=== PATIENT | female | born 1980 | race Caucasian/White ===

== ENCOUNTER 2019-03-11 14:37 | Inpatient (IN) ==
[2019-03-11 17:01] LABS: Apearance,Urine CLOUDY (Clear); Bacteria,Urine Occasional /HPF (Few); Blood, Urine Moderate mg/dL (Negative); Glucose,Urine (UA) Negative (Negative); Ketones,Urine 80 mg/dL (Negative); Mucus,Urine Many /LPF (Occasional); Nitrite,Urine Negative (Negative); Protein,Urine 100 MG/DL; RBC,Urine 78 /HPF (0-4); Squamous Epithelial Cell,Urine Moderate /HPF (0-10); Urine Color Amber (Yellow); Urine Specific Gravity 1.027 (1.001-1.035); WBC,Urine 12 /HPF (0-6)
[2019-03-11 17:02] LABS: Bilirubin,Urine Small mg/dL (Negative)
[2019-03-11] MEDS ORDERED: MORPHINE 4 MG/1 ML VIAL IV STA (17:13)
[2019-03-11] MEDS ORDERED: ONDANSETRON 4 MG/2 ML VIAL IV STA (17:13)
[2019-03-11] MEDS ORDERED: SODIUM CHLORIDE 0.9% 1,000 ML IV STA (17:13)
[2019-03-11 17:38] LABS: Basophils % 0.2 % (0.0-0.8); Eosinophils % 0.2 % (0.00-10.9); Hematocrit 37.4 VOL% (35.7-47.0); Hemoglobin 12.3 GM/DL (12.0-16.0); Immature Granulocytes % 0.4 %; Immature Granulocytes Absolute 0.05 #; Lymphocytes # 1.3 10*3/uL (1.4-4.0); Lymphocytes % 10.7 % (21.3-54.2); Mean Corpuscular HGB Conc 32.9 GM/DL (32-36); Mean Corpuscular Volume 87.2 FL (87-102); Mean Platelet Volume 10.2 FL (9.6-12.0); Monocytes % 9.1 % (1.7-12.7); Neutrophils % 79.4 % (38.7-73.9); Platelet Count 306 T/CUMM (130-400); Red Blood Count 4.29 MC/CUMM (3.8-5.5); Red Cell Distribution Width 12.8 % (9.3-17.3); White Blood Count 11.7 T/CUMM (4-12)
[2019-03-11 18:15] LABS: Albumin 3.1 G/DL (3.4-5.0); Bilirubin,Total 0.9 MG/DL (0.2-1.0); Total Protein 8.3 G/DL (6.4-8.3)
[2019-03-11] MEDS ORDERED: ACETAMINOPHEN 325 MG TABLET PO PRN (20:36)
[2019-03-11] MEDS ORDERED: ONDANSETRON 4 MG/2 ML VIAL IV PRN (20:36)
[2019-03-11] MEDS: SODIUM CHLORIDE 0.45% 1,000 ML IV SCH (21:00)
[2019-03-11] MEDS ORDERED: LACTULOSE 20 GM/30 ML UDCUP PO PRN (23:06)
[2019-03-11] MEDS: ENOXAPARIN 40 MG/0.4 ML SYRINGE SUBCUT SCH (23:11)
[2019-03-11] MEDS: cefTRIAXone 1,000 MG in SYRINGE 1 EACH IV SCH (23:23)
[2019-03-11] MEDS: POTASSIUM CHLORIDE RIDER 10 MEQ in PREMIX 1 EACH IV SCH (23:24)
[2019-03-11] MEDS: DOCUSATE SODIUM 100 MG CAPSULE PO SCH (23:24)
[2019-03-12 00:18] LABS: Carcinoembryonic Antigen 0.7 NG/ML (0.0-5.0); Hepatitis B Core IgM Quant 0.12 Index; Hepatitis B Surface Ag Quant < 0.10 Index; Hepatitis B Surface Ag Result Negative (Negative); Hepatitis C Virus Ab Quant 0.07 Index; Hepatitis C Virus Ab Result Negative (Negative)
[2019-03-12] MEDS: POTASSIUM CHLORIDE RIDER 10 MEQ in PREMIX 1 EACH IV SCH ×2 (01:00→02:06)
[2019-03-12 04:46] LABS: Basophils % 0.2 % (0.0-0.8); Eosinophils # 0.1 10*3/uL (0.0-0.87); Eosinophils % 0.5 % (0.00-10.9); Hematocrit 32.6 VOL% (35.7-47.0); Hemoglobin 10.6 GM/DL (12.0-16.0); Immature Granulocytes % 0.4 %; Immature Granulocytes Absolute 0.04 #; Lymphocytes # 1.4 10*3/uL (1.4-4.0); Lymphocytes % 14.6 % (21.3-54.2); Mean Corpuscular HGB Conc 32.5 GM/DL (32-36); Mean Corpuscular Volume 88.3 FL (87-102); Mean Platelet Volume 10.8 FL (9.6-12.0); Monocytes % 11.2 % (1.7-12.7); Neutrophils % 73.1 % (38.7-73.9); Platelet Count 286 T/CUMM (130-400); Red Blood Count 3.69 MC/CUMM (3.8-5.5); Red Cell Distribution Width 12.9 % (9.3-17.3); White Blood Count 9.3 T/CUMM (4-12)
[2019-03-12 05:20] LABS: Albumin 2.5 G/DL (3.4-5.0); Calcium 8.5 MG/DL (8.5-10.1); Osmolality,Calculated 272.7 MOS/KG (273-304); Total Protein 6.9 G/DL (6.4-8.3)
[2019-03-12] MEDS: SODIUM CHLORIDE 0.45% 1,000 ML IV SCH ×5 (08:23→23:12)
[2019-03-12] MEDS: MORPHINE 4 MG/1 ML VIAL IV PRN ×3 (08:30→17:35)
[2019-03-12 17:18] LABS: PT Patient Result 11.1 SECS
[2019-03-12] MEDS: PANTOPRAZOLE 40 MG TABLET PO SCH (17:35)
[2019-03-12] MEDS: DOCUSATE SODIUM 100 MG CAPSULE PO SCH ×2 (17:35→21:15)
[2019-03-12] MEDS: ENOXAPARIN 40 MG/0.4 ML SYRINGE SUBCUT SCH (21:15)
[2019-03-12] MEDS: cefTRIAXone 1,000 MG in SYRINGE 1 EACH IV SCH (23:15)
[2019-03-13] MEDS: MORPHINE 4 MG/1 ML VIAL IV PRN ×2 (07:56→12:10)
[2019-03-13 08:38] VITALS: BP 96/51
[2019-03-13] MEDS: DOCUSATE SODIUM 100 MG CAPSULE PO SCH (09:30)
[2019-03-13] MEDS: PANTOPRAZOLE 40 MG TABLET PO SCH (09:30)
[2019-03-13] MEDS: SODIUM CHLORIDE 0.45% 1,000 ML IV SCH (17:34)
== END 2019-03-13 18:32 | disposition home or self-care (01) | DRG 436 ==
LOC: N.ED 14:37 → N.EDINP 20:27 → N.5E 22:17
PROVIDERS: ADMIT Internal Medicine; ATTEND Internal Medicine

== ENCOUNTER 2019-07-10 10:41 | Inpatient (IN) ==
[2019-07-10] MEDS ORDERED: ACETAMINOPHEN 325 MG TABLET PO PRN (11:59)
[2019-07-10] MEDS ORDERED: PROMETHAZINE 25 MG/1 ML VIAL IM PRN (12:00)
[2019-07-10] MEDS: LACTATED RINGERS 1,000 ML IV SCH (12:10)
[2019-07-10 12:53] LABS: Basophils % 0.4 % (0.0-0.8); Eosinophils % 0.1 % (0.00-10.9); Hematocrit 37.5 VOL% (35.7-47.0); Hemoglobin 12.7 GM/DL (12.0-16.0); Immature Granulocytes % 0.4 %; Immature Granulocytes Absolute 0.03 #; Lymphocytes # 1.4 10*3/uL (1.4-4.0); Lymphocytes % 17.1 % (21.3-54.2); Mean Corpuscular HGB Conc 33.9 GM/DL (32-36); Mean Platelet Volume 11.1 FL (9.6-12.0); Monocytes % 9.3 % (1.7-12.7); Neutrophils % 72.7 % (38.7-73.9); Platelet Count 157 T/CUMM (130-400); Red Blood Count 4.36 MC/CUMM (3.8-5.5); Red Cell Distribution Width 13.9 % (9.3-17.3); White Blood Count 8.4 T/CUMM (4-12)
[2019-07-10 13:08] LABS: Calcium 8.7 MG/DL (8.5-10.1); Osmolality,Calculated 274.8 MOS/KG (273-304); PT Patient Result 10.8 SECS (9.6-12.2)
[2019-07-10] MEDS: ONDANSETRON 4 MG/2 ML VIAL IV PRN (13:16)
[2019-07-10] MEDS ORDERED: POTASSIUM CHLORIDE RIDER 10 MEQ in PREMIX 1 EACH IV PRN (13:20)
[2019-07-10 13:22] LABS: Albumin 3.7 G/DL (3.4-5.0); Bilirubin,Direct 0.23 MG/DL (0.0-0.20); Bilirubin,Indirect 0.6 MG/DL (0.0-1.0); Bilirubin,Total 0.8 MG/DL (0.2-1.0)
[2019-07-10] MEDS: PIPERACILLIN/TAZOBACTAM 3,375 MG in SODIUM CHLORIDE 0.9% 100 ML IV SCH ×2 (13:50→22:51)
[2019-07-10] MEDS: POTASSIUM CHLORIDE 20 MEQ TABLET PO PRN ×3 (13:51→20:39)
[2019-07-10] MEDS: MORPHINE 4 MG/1 ML VIAL IV PRN (15:29)
[2019-07-10] MEDS: DOCUSATE SODIUM 100 MG CAPSULE PO SCH (20:39)
[2019-07-10] MEDS: OSELTAMIVIR 75 MG CAPSULE PO SCH (20:39)
[2019-07-11] MEDS: LACTATED RINGERS 1,000 ML IV SCH ×4 (03:01→19:55)
[2019-07-11 04:55] LABS: Basophils # 0.1 10*3/uL (0.0-0.2); Basophils % 0.7 % (0.0-0.8); Eosinophils # 0.1 10*3/uL (0.0-0.87); Eosinophils % 1.1 % (0.00-10.9); Hematocrit 34.1 VOL% (35.7-47.0); Hemoglobin 11.4 GM/DL (12.0-16.0); Immature Granulocytes % 0.3 %; Immature Granulocytes Absolute 0.02 #; Lymphocytes # 1.5 10*3/uL (1.4-4.0); Lymphocytes % 20.8 % (21.3-54.2); Mean Corpuscular HGB Conc 33.4 GM/DL (32-36); Mean Platelet Volume 11.7 FL (9.6-12.0); Monocytes % 12.6 % (1.7-12.7); Neutrophils % 64.5 % (38.7-73.9); Platelet Count 146 T/CUMM (130-400); Red Blood Count 3.92 MC/CUMM (3.8-5.5); Red Cell Distribution Width 13.9 % (9.3-17.3); White Blood Count 7.2 T/CUMM (4-12)
[2019-07-11] MEDS: PIPERACILLIN/TAZOBACTAM 3,375 MG in SODIUM CHLORIDE 0.9% 100 ML IV SCH ×3 (06:11→21:46)
[2019-07-11] MEDS: POTASSIUM CHLORIDE 20 MEQ TABLET PO PRN ×2 (06:11→15:22)
[2019-07-11] MEDS: ONDANSETRON 4 MG/2 ML VIAL IV PRN (06:19)
[2019-07-11] MEDS: DOCUSATE SODIUM 100 MG CAPSULE PO SCH ×2 (08:22→21:52)
[2019-07-11] MEDS: OSELTAMIVIR 75 MG CAPSULE PO SCH ×2 (08:22→21:45)
[2019-07-11] MEDS: PANTOPRAZOLE 40 MG VIAL IV SCH (08:23)
[2019-07-12] MEDS: PIPERACILLIN/TAZOBACTAM 3,375 MG in SODIUM CHLORIDE 0.9% 100 ML IV SCH ×3 (06:10→21:21)
[2019-07-12] MEDS ORDERED: ceFAZolin 1,000 MG in SYRINGE 1 EACH IV ONE (07:18)
[2019-07-12] MEDS: DOCUSATE SODIUM 100 MG CAPSULE PO SCH ×3 (09:02→21:23)
[2019-07-12] MEDS: PANTOPRAZOLE 40 MG VIAL IV SCH (09:02)
[2019-07-12] MEDS: OSELTAMIVIR 75 MG CAPSULE PO SCH ×2 (09:02→21:21)
[2019-07-12] MEDS: LACTATED RINGERS 1,000 ML IV SCH ×2 (09:03→11:41)
[2019-07-12] MEDS: ONDANSETRON 4 MG/2 ML VIAL IV PRN (10:25)
[2019-07-13] MEDS: LACTATED RINGERS 1,000 ML IV SCH ×4 (03:44→19:35)
[2019-07-13 05:20] LABS: Basophils % 0.4 % (0.0-0.8); Eosinophils # 0.1 10*3/uL (0.0-0.87); Eosinophils % 1.3 % (0.00-10.9); Hematocrit 31.9 VOL% (35.7-47.0); Hemoglobin 10.5 GM/DL (12.0-16.0); Immature Granulocytes % 0.2 %; Immature Granulocytes Absolute 0.01 #; Lymphocytes # 1.1 10*3/uL (1.4-4.0); Lymphocytes % 23.5 % (21.3-54.2); Mean Corpuscular HGB Conc 32.9 GM/DL (32-36); Mean Corpuscular Volume 88.9 FL (87-102); Monocytes % 10.9 % (1.7-12.7); Neutrophils % 63.7 % (38.7-73.9); Platelet Count 141 T/CUMM (130-400); Red Blood Count 3.59 MC/CUMM (3.8-5.5); Red Cell Distribution Width 14.4 % (9.3-17.3); White Blood Count 4.7 T/CUMM (4-12)
[2019-07-13 05:39] LABS: Albumin 2.7 G/DL (3.4-5.0); Bilirubin,Total 0.8 MG/DL (0.2-1.0); Calcium 8.4 MG/DL (8.5-10.1); Total Protein 6.2 G/DL (6.4-8.3)
[2019-07-13] MEDS: PIPERACILLIN/TAZOBACTAM 3,375 MG in SODIUM CHLORIDE 0.9% 100 ML IV SCH ×3 (05:59→22:01)
[2019-07-13] MEDS ORDERED: SCOPOLAMINE 1.5 MG PATCH TRANSDERM ONE (06:30)
[2019-07-13] MEDS ORDERED: ACETAMINOPHEN 500 MG TABLET PO ONE (06:30)
[2019-07-13] MEDS ORDERED: FAMOTIDINE 20 MG TABLET PO ONE (06:30)
[2019-07-13] MEDS ORDERED: ceFAZolin 1,000 MG in SYRINGE 1 EACH IV ONE (06:30)
[2019-07-13] MEDS ORDERED: PROPOFOL 200 MG/20 ML VIAL IV ONE (10:19)
[2019-07-13] MEDS ORDERED: fentaNYL 100 MCG/2 ML VIAL ONE (10:20)
[2019-07-13] MEDS ORDERED: LIDOCAINE 2% 5 ML VIAL ONE (10:20)
[2019-07-13] MEDS ORDERED: KETOROLAC 30 MG/1 ML VIAL ONE (10:20)
[2019-07-13] MEDS ORDERED: MIDAZOLAM 2 MG/2 ML VIAL ONE (10:20)
[2019-07-13] MEDS ORDERED: GLYCOPYRROLATE 0.4 MG/2 ML VIAL ONE (10:20)
[2019-07-13] MEDS ORDERED: SEVOFLURANE 1 UNIT/15 MINUTE INH ONE (10:20)
[2019-07-13] MEDS ORDERED: ONDANSETRON 4 MG/2 ML VIAL ONE (10:20)
[2019-07-13] MEDS ORDERED: DEXAMETHASONE 4 MG/1 ML VIAL ONE (10:20)
[2019-07-13] MEDS ORDERED: LACTATED RINGERS 1,000 ML IV ONE (10:21)
[2019-07-13] MEDS ORDERED: ROCURONIUM 100 MG/10 ML VIAL IV ONE (10:21)
[2019-07-13] MEDS ORDERED: NEOSTIGMINE 10 MG/10 ML VIAL ONE (10:21)
[2019-07-13] MEDS: MORPHINE 4 MG/1 ML VIAL IV PRN (12:11)
[2019-07-13] MEDS: PANTOPRAZOLE 40 MG VIAL IV SCH (12:16)
[2019-07-13] MEDS: DOCUSATE SODIUM 100 MG CAPSULE PO SCH ×2 (12:16→22:00)
[2019-07-13] MEDS: OSELTAMIVIR 75 MG CAPSULE PO SCH ×2 (12:16→22:00)
[2019-07-13] MEDS: HYDROmorphone 2 MG/1 ML VIAL IV PRN ×2 (15:01→19:33)
[2019-07-14] MEDS: HYDROmorphone 2 MG/1 ML VIAL IV PRN (00:07)
[2019-07-14] MEDS: PIPERACILLIN/TAZOBACTAM 3,375 MG in SODIUM CHLORIDE 0.9% 100 ML IV SCH ×3 (06:48→22:07)
[2019-07-14 07:45] LABS: Basophils % 0.2 % (0.0-0.8); Eosinophils % 0.3 % (0.00-10.9); Hematocrit 32.2 VOL% (35.7-47.0); Hemoglobin 10.5 GM/DL (12.0-16.0); Immature Granulocytes % 0.4 %; Immature Granulocytes Absolute 0.04 #; Lymphocytes # 1.7 10*3/uL (1.4-4.0); Lymphocytes % 16.2 % (21.3-54.2); Mean Corpuscular HGB Conc 32.6 GM/DL (32-36); Mean Platelet Volume 11.7 FL (9.6-12.0); Monocytes % 8.9 % (1.7-12.7); Platelet Count 161 T/CUMM (130-400); Red Blood Count 3.62 MC/CUMM (3.8-5.5); Red Cell Distribution Width 14.6 % (9.3-17.3); White Blood Count 10.5 T/CUMM (4-12)
[2019-07-14 08:16] LABS: Albumin 2.7 G/DL (3.4-5.0); Calcium 8.5 MG/DL (8.5-10.1); Osmolality,Calculated 273.5 MOS/KG (273-304); Total Protein 6.3 G/DL (6.4-8.3)
[2019-07-14] MEDS: PANTOPRAZOLE 40 MG VIAL IV SCH (09:11)
[2019-07-14] MEDS: DOCUSATE SODIUM 100 MG CAPSULE PO SCH ×2 (09:11→20:14)
[2019-07-14] MEDS: OSELTAMIVIR 75 MG CAPSULE PO SCH ×2 (09:11→20:13)
[2019-07-14] MEDS: POTASSIUM CHLORIDE 20 MEQ TABLET PO PRN ×3 (09:44→13:59)
[2019-07-14] MEDS: LACTATED RINGERS 1,000 ML IV SCH ×3 (11:28→23:30)
[2019-07-15] MEDS: PIPERACILLIN/TAZOBACTAM 3,375 MG in SODIUM CHLORIDE 0.9% 100 ML IV SCH ×2 (06:21→14:13)
[2019-07-15] MEDS: OSELTAMIVIR 75 MG CAPSULE PO SCH (09:47)
[2019-07-15] MEDS: DOCUSATE SODIUM 100 MG CAPSULE PO SCH (09:47)
[2019-07-15] MEDS: PANTOPRAZOLE 40 MG VIAL IV SCH (09:47)
[2019-07-15] MEDS: LACTATED RINGERS 1,000 ML IV SCH ×2 (09:48→14:13)
[2019-07-15 12:04] VITALS: BP 109/65
== END 2019-07-15 14:54 | disposition home or self-care (01) | DRG 418 ==
LOC: N.3E 10:48
PROVIDERS: ADMIT Family Medicine; ATTEND Family Medicine
PROC: LAPCHOL (2019-07-13 07:13)

== ENCOUNTER 2019-07-15 23:06 | Inpatient (IN) ==
[2019-07-15] MEDS ORDERED: PANTOPRAZOLE 40 MG VIAL IV STA (23:27)
[2019-07-15] MEDS ORDERED: ONDANSETRON 4 MG/2 ML VIAL IV STA (23:27)
[2019-07-15] MEDS ORDERED: SODIUM CHLORIDE 0.9% 500 ML IV STA (23:27)
[2019-07-15] MEDS ORDERED: HYDROmorphone 2 MG/1 ML VIAL IV STA (23:27)
[2019-07-16 00:03] LABS: Basophils # 0.1 10*3/uL (0.0-0.2); Basophils % 0.2 % (0.0-0.8); Eosinophils # 0.1 10*3/uL (0.0-0.87); Eosinophils % 0.4 % (0.00-10.9); Hematocrit 37.8 VOL% (35.7-47.0); Hemoglobin 12.3 GM/DL (12.0-16.0); Immature Granulocytes % 0.8 %; Immature Granulocytes Absolute 0.17 #; Lymphocytes # 0.9 10*3/uL (1.4-4.0); Lymphocytes % 4.4 % (21.3-54.2); Mean Corpuscular HGB Conc 32.5 GM/DL (32-36); Mean Platelet Volume 11.7 FL (9.6-12.0); Monocytes % 7.8 % (1.7-12.7); Neutrophils % 86.4 % (38.7-73.9); Platelet Count 187 T/CUMM (130-400); Red Cell Distribution Width 14.6 % (9.3-17.3); White Blood Count 20.3 T/CUMM (4-12)
[2019-07-16 01:09] LABS: Anisocytosis 1+; Band Neutrophils 3 % (0-10); Lymphocytes 6 % (20-55); Platelet Estimate Normal; Segmented Neutrophils 85 % (50-85); Total Cells Counted 100
[2019-07-16 01:15] LABS: Apearance,Urine CLEAR (Clear); Bacteria,Urine Occasional /HPF (Few); Bilirubin,Urine Negative (Negative); Blood, Urine Moderate mg/dL (Negative); Glucose,Urine (UA) Negative (Negative); Ketones,Urine 80 mg/dL (Negative); Mucus,Urine Occasional /LPF (Occasional); Nitrite,Urine Negative (Negative); Protein,Urine Negative; RBC,Urine 6 /HPF (0-4); Squamous Epithelial Cell,Urine Few /HPF (0-10); Urine Color Yellow (Yellow); Urine Specific Gravity > 1.060 (1.001-1.035); WBC,Urine 2 /HPF (0-6)
[2019-07-16 01:19] LABS: Albumin 3.1 G/DL (3.4-5.0); Bilirubin,Total 1.3 MG/DL (0.2-1.0); Calcium 8.9 MG/DL (8.5-10.1); Osmolality,Calculated 272.7 MOS/KG (273-304); Total Protein 7.5 G/DL (6.4-8.3)
[2019-07-16] MEDS ORDERED: PIPERACILLIN/TAZOBACTAM 3,375 MG in SODIUM CHLORIDE 0.9% 100 ML IV STA (01:46)
[2019-07-16] MEDS ORDERED: ONDANSETRON 4 MG/2 ML VIAL IV PRN (03:21)
[2019-07-16] MEDS ORDERED: HYDROmorphone 2 MG/1 ML VIAL IV PRN (03:21)
[2019-07-16] MEDS ORDERED: ACETAMINOPHEN 325 MG TABLET PO PRN (03:21)
[2019-07-16] MEDS: SODIUM CHLORIDE 0.9% 1,000 ML IV SCH (03:57)
[2019-07-16 05:59] LABS: Basophils % 0.2 % (0.0-0.8); Eosinophils % 0.1 % (0.00-10.9); Hematocrit 31.3 VOL% (35.7-47.0); Hemoglobin 10.3 GM/DL (12.0-16.0); Immature Granulocytes % 0.5 %; Immature Granulocytes Absolute 0.06 #; Lymphocytes # 0.5 10*3/uL (1.4-4.0); Lymphocytes % 3.9 % (21.3-54.2); Mean Corpuscular HGB Conc 32.9 GM/DL (32-36); Mean Corpuscular Volume 87.9 FL (87-102); Mean Platelet Volume 12.1 FL (9.6-12.0); Monocytes % 10.2 % (1.7-12.7); Neutrophils % 85.1 % (38.7-73.9); Platelet Count 151 T/CUMM (130-400); Red Blood Count 3.56 MC/CUMM (3.8-5.5); Red Cell Distribution Width 14.4 % (9.3-17.3); White Blood Count 12.8 T/CUMM (4-12)
[2019-07-16 06:25] LABS: Albumin 2.7 G/DL (3.4-5.0); Bilirubin,Total 1.3 MG/DL (0.2-1.0); Calcium 8.1 MG/DL (8.5-10.1); Total Protein 6.1 G/DL (6.4-8.3)
[2019-07-16 06:40] LABS: Band Neutrophils 1 % (0-10); Lymphocytes 5 % (20-55); Platelet Estimate Adequate; Segmented Neutrophils 83 % (50-85); Total Cells Counted 100
[2019-07-16] MEDS: ALBUTEROL/IPRATROPIUM 3 ML NEB RESP TX SCH ×3 (07:13→18:57)
[2019-07-16] MEDS: PANTOPRAZOLE 40 MG VIAL IV SCH (09:33)
[2019-07-16] MEDS: PIPERACILLIN/TAZOBACTAM 3,375 MG in SODIUM CHLORIDE 0.9% 100 ML IV SCH ×2 (09:33→17:46)
[2019-07-16 16:02] LABS: Basophils % 0.2 % (0.0-0.8); Eosinophils % 0.4 % (0.00-10.9); Hematocrit 32.5 VOL% (35.7-47.0); Hemoglobin 10.5 GM/DL (12.0-16.0); Immature Granulocytes % 0.4 %; Immature Granulocytes Absolute 0.05 #; Lymphocytes # 0.8 10*3/uL (1.4-4.0); Lymphocytes % 7.1 % (21.3-54.2); Mean Corpuscular HGB Conc 32.3 GM/DL (32-36); Mean Corpuscular Volume 89.3 FL (87-102); Mean Platelet Volume 12.2 FL (9.6-12.0); Monocytes % 11.7 % (1.7-12.7); Neutrophils % 80.2 % (38.7-73.9); Platelet Count 170 T/CUMM (130-400); Red Blood Count 3.64 MC/CUMM (3.8-5.5); Red Cell Distribution Width 14.6 % (9.3-17.3); White Blood Count 11.2 T/CUMM (4-12)
[2019-07-16 16:21] LABS: Albumin 2.6 G/DL (3.4-5.0); Bilirubin,Total 1.3 MG/DL (0.2-1.0); Calcium 7.8 MG/DL (8.5-10.1); Osmolality,Calculated 271.7 MOS/KG (273-304); Total Protein 6.6 G/DL (6.4-8.3)
[2019-07-16] MEDS: ENOXAPARIN 40 MG/0.4 ML SYRINGE SUBCUT SCH (22:13)
[2019-07-17] MEDS: ALBUTEROL/IPRATROPIUM 3 ML NEB RESP TX SCH ×4 (00:22→19:54)
[2019-07-17] MEDS: PIPERACILLIN/TAZOBACTAM 3,375 MG in SODIUM CHLORIDE 0.9% 100 ML IV SCH ×3 (01:42→19:30)
[2019-07-17 07:01] LABS: Basophils % 0.2 % (0.0-0.8); Eosinophils % 0.5 % (0.00-10.9); Hematocrit 28.1 VOL% (35.7-47.0); Hemoglobin 9.2 GM/DL (12.0-16.0); Immature Granulocytes % 0.6 %; Immature Granulocytes Absolute 0.05 #; Lymphocytes # 0.8 10*3/uL (1.4-4.0); Lymphocytes % 9.6 % (21.3-54.2); Mean Corpuscular HGB Conc 32.7 GM/DL (32-36); Mean Corpuscular Volume 90.4 FL (87-102); Mean Platelet Volume 11.6 FL (9.6-12.0); Monocytes % 10.3 % (1.7-12.7); Neutrophils % 78.8 % (38.7-73.9); Platelet Count 138 T/CUMM (130-400); Red Blood Count 3.11 MC/CUMM (3.8-5.5); Red Cell Distribution Width 14.6 % (9.3-17.3); White Blood Count 8.7 T/CUMM (4-12)
[2019-07-17 07:21] LABS: Albumin 2.2 G/DL (3.4-5.0); Bilirubin,Total 1.1 MG/DL (0.2-1.0); Calcium 7.9 MG/DL (8.5-10.1); Osmolality,Calculated 273.5 MOS/KG (273-304); Total Protein 5.8 G/DL (6.4-8.3)
[2019-07-17] MEDS: SODIUM CHLORIDE 0.9% 1,000 ML IV SCH ×2 (08:59→09:01)
[2019-07-17] MEDS: PANTOPRAZOLE 40 MG VIAL IV SCH (09:53)
[2019-07-17] MEDS: ENOXAPARIN 40 MG/0.4 ML SYRINGE SUBCUT SCH (21:31)
[2019-07-18] MEDS: ALBUTEROL/IPRATROPIUM 3 ML NEB RESP TX SCH ×4 (01:35→19:28)
[2019-07-18] MEDS: SODIUM CHLORIDE 0.9% 1,000 ML IV SCH ×3 (02:14→03:39)
[2019-07-18] MEDS: PIPERACILLIN/TAZOBACTAM 3,375 MG in SODIUM CHLORIDE 0.9% 100 ML IV SCH ×2 (02:19→09:58)
[2019-07-18 04:44] LABS: Basophils % 0.4 % (0.0-0.8); Eosinophils # 0.2 10*3/uL (0.0-0.87); Eosinophils % 2.9 % (0.00-10.9); Hematocrit 26.3 VOL% (35.7-47.0); Hemoglobin 8.5 GM/DL (12.0-16.0); Immature Granulocytes % 0.6 %; Immature Granulocytes Absolute 0.03 #; Lymphocytes % 19.6 % (21.3-54.2); Mean Corpuscular HGB Conc 32.3 GM/DL (32-36); Mean Corpuscular Volume 89.5 FL (87-102); Monocytes % 10.2 % (1.7-12.7); Neutrophils % 66.3 % (38.7-73.9); Platelet Count 137 T/CUMM (130-400); Red Blood Count 2.94 MC/CUMM (3.8-5.5); Red Cell Distribution Width 14.5 % (9.3-17.3); White Blood Count 5.1 T/CUMM (4-12)
[2019-07-18 05:03] LABS: Osmolality,Calculated 283.7 MOS/KG (273-304)
[2019-07-18] MEDS: PANTOPRAZOLE 40 MG VIAL IV SCH (09:50)
[2019-07-18] MEDS: POTASSIUM CHLORIDE RIDER 10 MEQ in PREMIX 1 EACH IV SCH ×4 (11:09→14:12)
[2019-07-18] MEDS: AMOXICILLIN/CLAV 500 MG TABLET PO SCH ×2 (11:15→18:57)
[2019-07-18] MEDS: ENOXAPARIN 40 MG/0.4 ML SYRINGE SUBCUT SCH (19:57)
[2019-07-19] MEDS: ALBUTEROL/IPRATROPIUM 3 ML NEB RESP TX SCH ×2 (01:11→08:21)
[2019-07-19] MEDS: AMOXICILLIN/CLAV 500 MG TABLET PO SCH ×2 (02:26→11:14)
[2019-07-19 05:10] LABS: Basophils % 0.4 % (0.0-0.8); Eosinophils # 0.1 10*3/uL (0.0-0.87); Eosinophils % 2.7 % (0.00-10.9); Hematocrit 27.2 VOL% (35.7-47.0); Hemoglobin 8.8 GM/DL (12.0-16.0); Immature Granulocytes % 0.4 %; Immature Granulocytes Absolute 0.02 #; Lymphocytes # 0.9 10*3/uL (1.4-4.0); Lymphocytes % 19.4 % (21.3-54.2); Mean Corpuscular HGB Conc 32.4 GM/DL (32-36); Mean Corpuscular Volume 88.6 FL (87-102); Mean Platelet Volume 11.7 FL (9.6-12.0); Monocytes % 10.6 % (1.7-12.7); Neutrophils % 66.5 % (38.7-73.9); Platelet Count 162 T/CUMM (130-400); Red Blood Count 3.07 MC/CUMM (3.8-5.5); Red Cell Distribution Width 14.6 % (9.3-17.3); White Blood Count 4.8 T/CUMM (4-12)
[2019-07-19 05:58] LABS: Osmolality,Calculated 275.3 MOS/KG (273-304)
[2019-07-19 08:58] VITALS: BP 108/62
[2019-07-19] MEDS: PANTOPRAZOLE 40 MG VIAL IV SCH (09:12)
== END 2019-07-19 11:55 | disposition home or self-care (01) | DRG 392 ==
LOC: N.ED 23:06 → N.EDINP 07-16 02:02 → N.3E 07-16 02:55
PROVIDERS: ADMIT Student in an Organized Health Care Education/Training Program; ATTEND Student in an Organized Health Care Education/Training Program

== ENCOUNTER 2020-10-27 09:00 | Inpatient (IN) ==
[2020-10-27] MEDS ORDERED: ONDANSETRON 4 MG/2 ML VIAL IV STA (09:20)
[2020-10-27] MEDS ORDERED: ONDANSETRON 4 MG/2 ML VIAL ONE (09:30)
[2020-10-27] MEDS ORDERED: SODIUM CHLORIDE 0.9% 1,000 ML IV STA (09:49)
[2020-10-27] MEDS ORDERED: MORPHINE 4 MG/1 ML VIAL IV ONE (09:49)
[2020-10-27 10:00] LABS: Basophils % 0.3 % (0.0-0.8); Eosinophils # 0.1 10*3/uL (0.0-0.87); Eosinophils % 0.6 % (0.00-10.9); Hematocrit 41.5 VOL% (35.7-47.0); Hemoglobin 13.6 GM/DL (12.0-16.0); Immature Granulocytes % 0.4 %; Immature Granulocytes Absolute 0.05 #; Lymphocytes # 1.9 10*3/uL (1.4-4.0); Lymphocytes % 16.2 % (21.3-54.2); Mean Corpuscular HGB Conc 32.8 GM/DL (32-36); Mean Corpuscular Volume 85.4 FL (87-102); Mean Platelet Volume 12.1 FL (9.6-12.0); Monocytes % 8.1 % (1.7-12.7); Neutrophils % 74.4 % (38.7-73.9); Platelet Count 202 T/CUMM (130-400); Red Blood Count 4.86 MC/CUMM (3.8-5.5); Red Cell Distribution Width 14.6 % (9.3-17.3)
[2020-10-27 10:09] LABS: Albumin 3.8 G/DL (3.4-5.0); Bilirubin,Total 0.5 MG/DL (0.2-1.0); Calcium 9.2 MG/DL (8.5-10.1); Osmolality,Calculated 274.8 MOS/KG (273-304); Potassium 3.6 MMOL/L (3.5-5.1); Total Protein 8.6 G/DL (6.4-8.3)
[2020-10-27 11:18] LABS: Bacteria,Urine Occasional /HPF (Few); Bilirubin,Urine Negative (Negative); Blood, Urine Negative (Negative); Glucose,Urine (UA) Negative (Negative); Ketones,Urine 20 mg/dL (Negative); Mucus,Urine Occasional /LPF (Occasional); Nitrite,Urine Negative (Negative); Protein,Urine Negative; RBC,Urine 2 /HPF (0-4); Squamous Epithelial Cell,Urine Few /HPF (0-10); Urine Appearance CLEAR (Clear); Urine Color Yellow (Yellow); Urine Specific Gravity 1.054 (1.001-1.035); Urine Urobilinogen < 2.0 EU/DL (0.2-1.0); WBC,Urine 4 /HPF (0-6)
[2020-10-27] MEDS ORDERED: PIPERACILLIN/TAZOBACTAM 3,375 MG in SODIUM CHLORIDE 0.9% 100 ML IV STA (14:49)
[2020-10-27] MEDS ORDERED: PROMETHAZINE 25 MG/1 ML VIAL IM PRN (14:49)
[2020-10-27] MEDS: SODIUM CHLORIDE 0.9% 1,000 ML IV SCH (15:12)
[2020-10-27] MEDS: ONDANSETRON 4 MG/2 ML VIAL IV PRN ×2 (15:13→20:05)
[2020-10-27] MEDS: HYDROmorphone 2 MG/1 ML VIAL IV PRN ×2 (15:13→19:58)
[2020-10-27] MEDS ORDERED: hydrALAZINE 20 MG/1 ML VIAL IV PRN (18:17)
[2020-10-27] MEDS: PIPERACILLIN/TAZOBACTAM 3,375 MG in SODIUM CHLORIDE 0.9% 100 ML IV SCH (22:51)
[2020-10-27] MEDS: DOCUSATE SODIUM 100 MG CAPSULE PO SCH (23:24)
[2020-10-28] MEDS: ONDANSETRON 4 MG/2 ML VIAL IV PRN ×3 (03:54→18:26)
[2020-10-28] MEDS: HYDROmorphone 2 MG/1 ML VIAL IV PRN ×5 (03:55→21:22)
[2020-10-28] MEDS: SODIUM CHLORIDE 0.9% 1,000 ML IV SCH ×3 (03:55→17:13)
[2020-10-28 06:18] LABS: Basophils # 0.1 10*3/uL (0.0-0.2); Basophils % 0.2 % (0.0-0.8); Hematocrit 36.2 VOL% (35.7-47.0); Hemoglobin 12.1 GM/DL (12.0-16.0); Immature Granulocytes % 0.7 %; Immature Granulocytes Absolute 0.19 #; Lymphocytes # 0.8 10*3/uL (1.4-4.0); Lymphocytes % 3.1 % (21.3-54.2); Mean Corpuscular HGB Conc 33.4 GM/DL (32-36); Mean Corpuscular Volume 86.2 FL (87-102); Mean Platelet Volume 11.8 FL (9.6-12.0); Monocytes % 10.9 % (1.7-12.7); Neutrophils % 85.1 % (38.7-73.9); Platelet Count 201 T/CUMM (130-400); Red Cell Distribution Width 14.9 % (9.3-17.3); White Blood Count 27.5 T/CUMM (4-12)
[2020-10-28 06:29] LABS: PT Patient Result 10.9 SECS (9.8-11.9)
[2020-10-28] MEDS: PIPERACILLIN/TAZOBACTAM 3,375 MG in SODIUM CHLORIDE 0.9% 100 ML IV SCH ×3 (06:30→21:22)
[2020-10-28 06:44] LABS: Albumin 2.9 G/DL (3.4-5.0); Bilirubin,Direct 0.32 MG/DL (0.0-0.20); Bilirubin,Indirect 0.7 MG/DL (0.0-1.0); Calcium 7.9 MG/DL (8.5-10.1); Osmolality,Calculated 279.4 MOS/KG (273-304); Potassium 3.7 MMOL/L (3.5-5.1); Total Protein 7.1 G/DL (6.4-8.3)
[2020-10-28] MEDS: PANTOPRAZOLE 40 MG TABLET PO SCH (09:49)
[2020-10-28] MEDS: DOCUSATE SODIUM 100 MG CAPSULE PO SCH ×2 (09:49→20:14)
[2020-10-28 10:36] LABS: Lymphocytes 3 % (20-55); Platelet Estimate Normal; Polychromasia Slight; Segmented Neutrophils 91 % (50-85); Total Cells Counted 100
[2020-10-28 10:37] LABS: Hypochromasia 1+
[2020-10-29] MEDS: ACETAMINOPHEN 325 MG TABLET PO PRN ×2 (01:31→16:06)
[2020-10-29] MEDS: SODIUM CHLORIDE 0.9% 1,000 ML IV SCH ×3 (01:31→21:35)
[2020-10-29] MEDS: PIPERACILLIN/TAZOBACTAM 3,375 MG in SODIUM CHLORIDE 0.9% 100 ML IV SCH ×3 (05:52→21:54)
[2020-10-29 06:26] LABS: Basophils # 0.1 10*3/uL (0.0-0.2); Basophils % 0.3 % (0.0-0.8); Hematocrit 32.5 VOL% (35.7-47.0); Hemoglobin 10.8 GM/DL (12.0-16.0); Immature Granulocytes % 1.2 %; Immature Granulocytes Absolute 0.43 #; Lymphocytes # 1.4 10*3/uL (1.4-4.0); Lymphocytes % 3.7 % (21.3-54.2); Mean Corpuscular HGB Conc 33.2 GM/DL (32-36); Mean Corpuscular Volume 86.2 FL (87-102); Monocytes % 12.9 % (1.7-12.7); Neutrophils % 81.9 % (38.7-73.9); Platelet Count 204 T/CUMM (130-400); Red Blood Count 3.77 MC/CUMM (3.8-5.5); Red Cell Distribution Width 15.2 % (9.3-17.3); White Blood Count 36.4 T/CUMM (4-12)
[2020-10-29 06:40] LABS: Calcium 7.5 MG/DL (8.5-10.1); Osmolality,Calculated 272.7 MOS/KG (273-304); Potassium 3.2 MMOL/L (3.5-5.1)
[2020-10-29 07:45] LABS: Anisocytosis 1+; Band Neutrophils 10 % (0-10); Lymphocytes 4 % (20-55); Metamyelocytes 1 %; Platelet Estimate Normal; Segmented Neutrophils 74 % (50-85); Smudge Cells Few; Total Cells Counted 100
[2020-10-29 07:46] LABS: Macrocytosis Slight
[2020-10-29] MEDS: DOCUSATE SODIUM 100 MG CAPSULE PO SCH ×2 (08:12→20:17)
[2020-10-29] MEDS: PANTOPRAZOLE 40 MG TABLET PO SCH (08:12)
[2020-10-29] MEDS: HYDROmorphone 2 MG/1 ML VIAL IV PRN ×3 (08:46→20:20)
[2020-10-29] MEDS: ONDANSETRON 4 MG/2 ML VIAL IV PRN (17:35)
[2020-10-30] MEDS: ACETAMINOPHEN 325 MG TABLET PO PRN ×2 (00:22→16:10)
[2020-10-30] MEDS: SODIUM CHLORIDE 0.9% 1,000 ML IV SCH ×2 (01:47→09:28)
[2020-10-30] MEDS: HYDROmorphone 2 MG/1 ML VIAL IV PRN ×4 (01:48→20:42)
[2020-10-30 04:23] LABS: Basophils # 0.1 10*3/uL (0.0-0.2); Basophils % 0.2 % (0.0-0.8); Eosinophils % 0.1 % (0.00-10.9); Hematocrit 32.1 VOL% (35.7-47.0); Hemoglobin 10.4 GM/DL (12.0-16.0); Immature Granulocytes % 1.5 %; Immature Granulocytes Absolute 0.48 #; Lymphocytes # 1.4 10*3/uL (1.4-4.0); Lymphocytes % 4.4 % (21.3-54.2); Mean Corpuscular HGB Conc 32.4 GM/DL (32-36); Mean Corpuscular Volume 88.2 FL (87-102); Mean Platelet Volume 11.5 FL (9.6-12.0); Monocytes % 10.9 % (1.7-12.7); Neutrophils % 82.9 % (38.7-73.9); Platelet Count 243 T/CUMM (130-400); Red Blood Count 3.64 MC/CUMM (3.8-5.5); Red Cell Distribution Width 15.3 % (9.3-17.3); White Blood Count 31.9 T/CUMM (4-12)
[2020-10-30 04:46] LABS: Calcium 7.2 MG/DL (8.5-10.1); Osmolality,Calculated 277.3 MOS/KG (273-304); Potassium 3.1 MMOL/L (3.5-5.1)
[2020-10-30] MEDS: PIPERACILLIN/TAZOBACTAM 3,375 MG in SODIUM CHLORIDE 0.9% 100 ML IV SCH ×3 (05:29→22:48)
[2020-10-30] MEDS: PANTOPRAZOLE 40 MG TABLET PO SCH (08:13)
[2020-10-30] MEDS: DOCUSATE SODIUM 100 MG CAPSULE PO SCH ×2 (08:13→20:42)
[2020-10-30 08:39] LABS: Anisocytosis 1+; Macrocytosis Slight; Platelet Estimate Normal
[2020-10-30] MEDS: SODIUM CHLOR 0.9% KCL 20 MEQ 20 MEQ/1,000 ML BAG IV SCH ×2 (11:19→22:47)
[2020-10-30] MEDS: POTASSIUM CHLORIDE RIDER 10 MEQ in PREMIX 1 EACH IV SCH ×3 (12:32→15:47)
[2020-10-31] MEDS: HYDROmorphone 2 MG/1 ML VIAL IV PRN ×5 (00:25→22:04)
[2020-10-31] MEDS: SODIUM CHLOR 0.9% KCL 20 MEQ 20 MEQ/1,000 ML BAG IV SCH ×3 (02:35→20:26)
[2020-10-31] MEDS: PIPERACILLIN/TAZOBACTAM 3,375 MG in SODIUM CHLORIDE 0.9% 100 ML IV SCH ×3 (05:45→21:22)
[2020-10-31 06:52] LABS: Basophils # 0.1 10*3/uL (0.0-0.2); Basophils % 0.3 % (0.0-0.8); Eosinophils # 0.2 10*3/uL (0.0-0.87); Eosinophils % 0.6 % (0.00-10.9); Hematocrit 32.4 VOL% (35.7-47.0); Hemoglobin 10.6 GM/DL (12.0-16.0); Immature Granulocytes % 0.6 %; Immature Granulocytes Absolute 0.16 #; Lymphocytes # 1.4 10*3/uL (1.4-4.0); Lymphocytes % 5.8 % (21.3-54.2); Mean Corpuscular HGB Conc 32.7 GM/DL (32-36); Mean Corpuscular Volume 87.1 FL (87-102); Mean Platelet Volume 11.3 FL (9.6-12.0); Monocytes % 10.9 % (1.7-12.7); Neutrophils % 81.8 % (38.7-73.9); Platelet Count 337 T/CUMM (130-400); Red Blood Count 3.72 MC/CUMM (3.8-5.5); Red Cell Distribution Width 15.4 % (9.3-17.3); White Blood Count 24.6 T/CUMM (4-12)
[2020-10-31 07:31] LABS: Calcium 7.5 MG/DL (8.5-10.1); Osmolality,Calculated 276.3 MOS/KG (273-304); Potassium 3.4 MMOL/L (3.5-5.1)
[2020-10-31 07:42] LABS: Anisocytosis 1+; Band Neutrophils 5 % (0-10); Lymphocytes 4 % (20-55); Macrocytosis 1+; Platelet Estimate Normal; Segmented Neutrophils 76 % (50-85); Total Cells Counted 100
[2020-10-31] MEDS: DOCUSATE SODIUM 100 MG CAPSULE PO SCH ×2 (08:59→20:25)
[2020-10-31] MEDS: PANTOPRAZOLE 40 MG TABLET PO SCH (08:59)
[2020-10-31] MEDS ORDERED: MAGNESIUM SULF RIDER 4 GM in PREMIX 1 EACH IV PRN (11:17)
[2020-10-31] MEDS ORDERED: POTASSIUM CHLORIDE RIDER 10 MEQ in PREMIX 1 EACH IV PRN (11:17)
[2020-10-31] MEDS ORDERED: MAGNESIUM SULF RIDER 2 GM in PREMIX 1 EACH IV PRN (11:17)
[2020-11-01] MEDS: HYDROmorphone 2 MG/1 ML VIAL IV PRN ×2 (04:34→08:34)
[2020-11-01] MEDS: PIPERACILLIN/TAZOBACTAM 3,375 MG in SODIUM CHLORIDE 0.9% 100 ML IV SCH ×2 (05:03→12:34)
[2020-11-01 05:37] LABS: Basophils # 0.1 10*3/uL (0.0-0.2); Basophils % 0.2 % (0.0-0.8); Eosinophils # 0.2 10*3/uL (0.0-0.87); Eosinophils % 0.8 % (0.00-10.9); Hematocrit 32.1 VOL% (35.7-47.0); Hemoglobin 10.7 GM/DL (12.0-16.0); Immature Granulocytes % 0.7 %; Immature Granulocytes Absolute 0.15 #; Lymphocytes # 1.5 10*3/uL (1.4-4.0); Lymphocytes % 7.1 % (21.3-54.2); Mean Corpuscular HGB Conc 33.3 GM/DL (32-36); Mean Corpuscular Volume 85.6 FL (87-102); Mean Platelet Volume 11.5 FL (9.6-12.0); Monocytes % 15.3 % (1.7-12.7); Neutrophils % 75.9 % (38.7-73.9); Platelet Count 380 T/CUMM (130-400); Red Blood Count 3.75 MC/CUMM (3.8-5.5); Red Cell Distribution Width 15.3 % (9.3-17.3); White Blood Count 21.2 T/CUMM (4-12)
[2020-11-01 05:51] LABS: Albumin 1.9 G/DL (3.4-5.0); Bilirubin,Direct 0.88 MG/DL (0.0-0.20); Bilirubin,Indirect 0.9 MG/DL (0.0-1.0); Bilirubin,Total 1.8 MG/DL (0.2-1.0); Total Protein 6.5 G/DL (6.4-8.3)
[2020-11-01 05:52] LABS: Calcium 7.7 MG/DL (8.5-10.1); Osmolality,Calculated 272.7 MOS/KG (273-304); Potassium 3.2 MMOL/L (3.5-5.1)
[2020-11-01 05:59] LABS: Eosinophils 1 % (0-10); Hypochromasia 1+; Lymphocytes 10 % (20-55); Microcytosis 1+; Platelet Estimate Adequate; Segmented Neutrophils 75 % (50-85); Total Cells Counted 100
[2020-11-01] MEDS: DOCUSATE SODIUM 100 MG CAPSULE PO SCH (08:34)
[2020-11-01] MEDS: PANTOPRAZOLE 40 MG TABLET PO SCH (08:34)
[2020-11-01 12:38] VITALS: BP 121/68
== END 2020-11-01 15:11 | disposition home or self-care (01) | DRG 439 ==
LOC: N.ED 09:00 → N.EDINP 12:05 → N.5E 17:11
PROVIDERS: ADMIT Family Medicine; ATTEND Family Medicine

== ENCOUNTER 2022-08-26 13:27 | Inpatient (IN) ==
[2022-08-26] MEDS ORDERED: SODIUM CHLORIDE 0.9% 1,000 ML IV STA (14:49)
[2022-08-26] MEDS ORDERED: MORPHINE 2 MG/1 ML SYRINGE IV STA (14:49)
[2022-08-26] MEDS ORDERED: hydrALAZINE 20 MG/1 ML VIAL IV STA (14:49)
[2022-08-26] MEDS ORDERED: ONDANSETRON 4 MG/2 ML VIAL IV STA (14:49)
[2022-08-26 15:04] LABS: Basophils % 0.1 % (0.0-0.8); Hematocrit 37.8 VOL% (35.7-47.0); Hemoglobin 12.4 GM/DL (12.0-16.0); Immature Granulocytes % 0.9 %; Immature Granulocytes Absolute 0.27 #; Lymphocytes # 1.4 10*3/uL (1.4-4.0); Lymphocytes % 4.5 % (21.3-54.2); Mean Corpuscular HGB Conc 32.8 GM/DL (32-36); Mean Corpuscular Volume 75.3 FL (87-102); Monocytes % 6.6 % (1.7-12.7); Neutrophils % 87.9 % (38.7-73.9); Platelet Count 433 T/CUMM (130-400); Red Blood Count 5.02 MC/CUMM (3.8-5.5); Red Cell Distribution Width 17.5 % (9.3-17.3)
[2022-08-26 15:38] LABS: Albumin 3.7 G/DL (3.4-5.0); Bilirubin,Total 0.5 MG/DL (0.20-1.00); Calcium 9.6 MG/DL (8.5-10.1); Osmolality,Calculated 286.3 MOS/KG (273-304); Potassium 4.2 MMOL/L (3.5-5.1); Total Protein 8.3 G/DL (6.4-8.2)
[2022-08-26 15:47] LABS: Lymphocytes 6 % (20-55); Total Cells Counted 100
[2022-08-26 15:50] LABS: Hypochromia Slight; Microcytosis Slight; Ovalocytes Slight; Platelet Estimate Adequate; Target Cells Slight
[2022-08-26 16:01] LABS: Bilirubin,Urine Small mg/dL (Negative); Blood, Urine Moderate mg/dL (Negative); Glucose,Urine (UA) Negative (Negative); Ketones,Urine 40 mg/dL (Negative); Nitrite,Urine Negative (Negative); Protein,Urine 100 mg/dL (Negative); Urine Appearance Slightly Cloudy (Clear); Urine Color Yellow (Yellow); Urine Specific Gravity >= 1.030 (1.001-1.035); Urine Urobilinogen 0.2 eU/dL (<2.0)
[2022-08-26 16:05] LABS: Hyaline Casts,Urine 3 /LPF (0-3); Mucus,Urine Occasional /LPF (Occasional); RBC,Urine 23 /HPF (0-4); Squamous Epithelial Cell,Urine Occasional /HPF (0-10)
[2022-08-26] MEDS ORDERED: KETOROLAC 30 MG/1 ML VIAL IV STA (16:20)
[2022-08-26] MEDS ORDERED: PIPERACILLIN/TAZOBACTAM 3,375 MG in SODIUM CHLORIDE 0.9% 100 ML IV STA (17:07)
[2022-08-26] MEDS ORDERED: fentaNYL 100 MCG/2 ML VIAL IV STA (17:21)
[2022-08-26] MEDS ORDERED: ONDANSETRON 4 MG/2 ML VIAL IV ONE (17:21)
[2022-08-26] MEDS ORDERED: LABETALOL 20 MG/4 ML SYRINGE IV STA (17:21)
[2022-08-26] MEDS ORDERED: ACETAMINOPHEN 325 MG TABLET PO PRN (18:13)
[2022-08-26] MEDS ORDERED: SUCCINYLCHOLINE 200 MG/10 ML VIAL ONE (18:49)
[2022-08-26] MEDS ORDERED: propofoL 200 MG/20 ML VIAL IV ONE (18:49)
[2022-08-26] MEDS ORDERED: ROCURONIUM 50 MG/5 ML VIAL IV ONE (18:49)
[2022-08-26] MEDS ORDERED: LIDOCAINE 2% 5 ML VIAL ONE (18:49)
[2022-08-26] MEDS ORDERED: MIDAZOLAM 2 MG/2 ML VIAL ONE (18:50)
[2022-08-26] MEDS ORDERED: fentaNYL 100 MCG/2 ML VIAL ONE ×2 (18:50→20:08)
[2022-08-26] MEDS ORDERED: HEPARIN/NACL 0.9% 2 UNITS/ML 1,000 UNIT/500 ML BAG IV ONE (18:52)
[2022-08-26] MEDS ORDERED: NITROGLYCERIN DRIP 0 MG/0 ML BOTTLE IV ONE (18:52)
[2022-08-26] MEDS ORDERED: ALBUMIN 5% 0 GM/0 ML VIAL IV ONE (18:53)
[2022-08-26] MEDS ORDERED: PHENYLEPHRINE DRIP 0 MG/0 ML PREMIX IV ONE (18:53)
[2022-08-26] MEDS ORDERED: SODIUM CHLORIDE 0.9% 1,000 ML IV ONE (19:49)
[2022-08-26] MEDS ORDERED: LACTATED RINGERS 1,000 ML IV ONE (19:49)
[2022-08-26] MEDS ORDERED: DEXAMETHASONE 4 MG/1 ML VIAL ONE (19:49)
[2022-08-26] MEDS ORDERED: ONDANSETRON 4 MG/2 ML VIAL ONE (19:49)
[2022-08-26] MEDS ORDERED: SUGAMMADEX 200 MG/2 ML VIAL IV ONE (19:59)
[2022-08-26] MEDS ORDERED: HEPARIN 5,000 UNIT/1 ML VIAL IV ONE (20:17)
[2022-08-26] MEDS: DEXTROSE 5% LACTATED RINGERS 1,000 ML IV SCH (20:39)
[2022-08-26] MEDS: HEPARIN DRIP 25,000 UNITS/500 ML PREMIX IV SCH (20:42)
[2022-08-26] MEDS: HYDROmorphone 1 MG/1 ML SYRINGE IV PRN ×2 (20:48→23:53)
[2022-08-26 22:42] LABS: Basophils # 0.1 10*3/uL (0.0-0.2); Basophils % 0.1 % (0.0-0.8); Hematocrit 31.7 VOL% (35.7-47.0); Hemoglobin 10.3 GM/DL (12.0-16.0); Immature Granulocytes % 0.7 %; Immature Granulocytes Absolute 0.25 #; Lymphocytes # 0.7 10*3/uL (1.4-4.0); Lymphocytes % 2.2 % (21.3-54.2); Mean Corpuscular HGB Conc 32.5 GM/DL (32-36); Mean Corpuscular Volume 77.5 FL (87-102); Mean Platelet Volume 10.9 FL (9.6-12.0); Monocytes # 1.4 10*3/uL (0.11-0.8); Platelet Count 368 T/CUMM (130-400); Red Blood Count 4.09 MC/CUMM (3.8-5.5); Red Cell Distribution Width 17.5 % (9.3-17.3)
[2022-08-26 23:04] LABS: Eosinophils 1 % (0-10); Lymphocytes 4 % (20-55); Platelet Estimate Normal; Total Cells Counted 100
[2022-08-26 23:06] LABS: Hypochromia Slight; Microcytosis Slight; Ovalocytes Slight
[2022-08-26] MEDS ORDERED: hydrALAZINE 20 MG/1 ML VIAL IV ONE (23:06)
[2022-08-27 03:18] LABS: Basophils # 0.1 10*3/uL (0.0-0.2); Basophils % 0.1 % (0.0-0.8); Eosinophils % 0.1 % (0.00-10.9); Hematocrit 32.7 VOL% (35.7-47.0); Hemoglobin 10.4 GM/DL (12.0-16.0); Immature Granulocytes % 0.8 %; Immature Granulocytes Absolute 0.31 #; Lymphocytes # 1.1 10*3/uL (1.4-4.0); Mean Corpuscular HGB Conc 31.8 GM/DL (32-36); Mean Corpuscular Volume 78.8 FL (87-102); Mean Platelet Volume 10.4 FL (9.6-12.0); Monocytes # 2.3 10*3/uL (0.11-0.8); Monocytes % 6.2 % (1.7-12.7); Neutrophils % 89.8 % (38.7-73.9); Platelet Count 350 T/CUMM (130-400); Red Blood Count 4.15 MC/CUMM (3.8-5.5); Red Cell Distribution Width 17.8 % (9.3-17.3); White Blood Count 36.7 T/CUMM (4-12)
[2022-08-27 03:33] LABS: Albumin 2.5 G/DL (3.4-5.0); Bilirubin,Total 0.4 MG/DL (0.20-1.00); Calcium 7.6 MG/DL (8.5-10.1); Osmolality,Calculated 288.1 MOS/KG (273-304); Potassium 3.4 MMOL/L (3.5-5.1); Total Protein 6.6 G/DL (6.4-8.2)
[2022-08-27 03:49] LABS: Hypochromia Slight; Lymphocytes 6 % (20-55); Microcytosis Slight; Platelet Estimate Adequate; Total Cells Counted 100
[2022-08-27] MEDS: HYDROmorphone 1 MG/1 ML SYRINGE IV PRN ×4 (04:02→19:24)
[2022-08-27] MEDS: ONDANSETRON 4 MG/2 ML VIAL IV PRN ×4 (04:08→19:24)
[2022-08-27] MEDS: DEXTROSE 5% LACTATED RINGERS 1,000 ML IV SCH ×3 (04:39→19:25)
[2022-08-27] MEDS: POTASSIUM CHLORIDE RIDER 10 MEQ/100 ML PREMIX IV PRN ×3 (04:45→06:41)
[2022-08-27] MEDS: PIPERACILLIN/TAZOBACTAM 3,375 MG in SODIUM CHLORIDE 0.9% 100 ML IV SCH ×3 (05:40→20:22)
[2022-08-27] MEDS: PANTOPRAZOLE 40 MG TABLET PO SCH (08:41)
[2022-08-27] MEDS ORDERED: TOPIRAMATE 25 MG TABLET PER TUBE ONE (12:15)
[2022-08-27] MEDS: POTASSIUM CHLORIDE RIDER 10 MEQ/100 ML PREMIX IV SCH ×4 (13:00→16:03)
[2022-08-27 13:28] LABS: Calcium 7.9 MG/DL (8.5-10.1); Osmolality,Calculated 283.4 MOS/KG (273-304); Potassium 3.6 MMOL/L (3.5-5.1)
[2022-08-27] MEDS: HEPARIN DRIP 25,000 UNITS/500 ML PREMIX IV SCH ×2 (13:43→19:11)
[2022-08-28] MEDS: HYDROmorphone 1 MG/1 ML SYRINGE IV PRN ×4 (02:31→17:55)
[2022-08-28] MEDS: ONDANSETRON 4 MG/2 ML VIAL IV PRN ×3 (02:32→17:56)
[2022-08-28] MEDS: DEXTROSE 5% LACTATED RINGERS 1,000 ML IV SCH ×3 (03:57→23:10)
[2022-08-28] MEDS: HEPARIN DRIP 25,000 UNITS/500 ML PREMIX IV SCH ×2 (04:11→20:50)
[2022-08-28] MEDS: PIPERACILLIN/TAZOBACTAM 3,375 MG in SODIUM CHLORIDE 0.9% 100 ML IV SCH ×3 (04:12→21:01)
[2022-08-28 05:31] LABS: Basophils # 0.1 10*3/uL (0.0-0.2); Basophils % 0.2 % (0.0-0.8); Eosinophils # 0.1 10*3/uL (0.0-0.87); Eosinophils % 0.3 % (0.00-10.9); Hematocrit 31.3 VOL% (35.7-47.0); Hemoglobin 9.8 GM/DL (12.0-16.0); Immature Granulocytes % 0.7 %; Immature Granulocytes Absolute 0.18 #; Lymphocytes # 2.3 10*3/uL (1.4-4.0); Lymphocytes % 8.6 % (21.3-54.2); Mean Corpuscular HGB Conc 31.3 GM/DL (32-36); Mean Platelet Volume 10.6 FL (9.6-12.0); Monocytes # 1.7 10*3/uL (0.11-0.8); Monocytes % 6.6 % (1.7-12.7); Neutrophils % 83.6 % (38.7-73.9); Platelet Count 328 T/CUMM (130-400); Red Blood Count 3.96 MC/CUMM (3.8-5.5); Red Cell Distribution Width 17.5 % (9.3-17.3); White Blood Count 26.2 T/CUMM (4-12)
[2022-08-28 05:49] LABS: Calcium 8.1 MG/DL (8.5-10.1); Osmolality,Calculated 283.3 MOS/KG (273-304); Potassium 3.8 MMOL/L (3.5-5.1)
[2022-08-28 05:58] LABS: Eosinophils 1 % (0-10); Lymphocytes 6 % (20-55); Platelet Estimate Adequate; Total Cells Counted 100
[2022-08-28 05:59] LABS: Hypochromia Slight; Microcytosis Slight; Ovalocytes Slight
[2022-08-28] MEDS: PANTOPRAZOLE 40 MG TABLET PO SCH (10:05)
[2022-08-28] MEDS: amLODIPine 5 MG TABLET PO SCH (11:19)
[2022-08-28] MEDS: hydrALAZINE 20 MG/1 ML VIAL IV PRN (14:16)
[2022-08-29] MEDS: ONDANSETRON 4 MG/2 ML VIAL IV PRN ×5 (00:01→21:56)
[2022-08-29] MEDS: HYDROmorphone 1 MG/1 ML SYRINGE IV PRN ×4 (00:02→21:55)
[2022-08-29] MEDS: hydrALAZINE 20 MG/1 ML VIAL IV PRN ×3 (00:26→10:45)
[2022-08-29 03:26] LABS: Basophils # 0.1 10*3/uL (0.0-0.2); Basophils % 0.3 % (0.0-0.8); Eosinophils # 0.3 10*3/uL (0.0-0.87); Eosinophils % 1.3 % (0.00-10.9); Hematocrit 30.5 VOL% (35.7-47.0); Hemoglobin 9.6 GM/DL (12.0-16.0); Immature Granulocytes % 0.6 %; Immature Granulocytes Absolute 0.12 #; Lymphocytes # 1.9 10*3/uL (1.4-4.0); Lymphocytes % 9.7 % (21.3-54.2); Mean Corpuscular HGB Conc 31.5 GM/DL (32-36); Mean Platelet Volume 10.4 FL (9.6-12.0); Monocytes # 1.5 10*3/uL (0.11-0.8); Monocytes % 7.6 % (1.7-12.7); Neutrophils % 80.5 % (38.7-73.9); Platelet Count 348 T/CUMM (130-400); Red Blood Count 3.86 MC/CUMM (3.8-5.5); Red Cell Distribution Width 17.5 % (9.3-17.3); White Blood Count 19.5 T/CUMM (4-12)
[2022-08-29 03:40] LABS: Calcium 8.2 MG/DL (8.5-10.1); Osmolality,Calculated 279.4 MOS/KG (273-304); Potassium 3.4 MMOL/L (3.5-5.1)
[2022-08-29] MEDS: POTASSIUM CHLORIDE RIDER 10 MEQ/100 ML PREMIX IV PRN ×3 (03:58→06:05)
[2022-08-29] MEDS ORDERED: PROMETHAZINE 25 MG/1 ML VIAL IM ONE (04:11)
[2022-08-29] MEDS: PIPERACILLIN/TAZOBACTAM 3,375 MG in SODIUM CHLORIDE 0.9% 100 ML IV SCH ×3 (04:59→21:57)
[2022-08-29] MEDS: PANTOPRAZOLE 40 MG TABLET PO SCH (08:22)
[2022-08-29] MEDS: amLODIPine 5 MG TABLET PO SCH (08:22)
[2022-08-29] MEDS: DEXTROSE 5% LACTATED RINGERS 1,000 ML IV SCH ×3 (09:08→21:57)
[2022-08-29] MEDS: HEPARIN DRIP 25,000 UNITS/500 ML PREMIX IV SCH ×3 (10:46→23:25)
[2022-08-29] MEDS ORDERED: DEXTROSE 10% 250 ML BAG IV PRN (12:09)
[2022-08-29] MEDS ORDERED: MAGNESIUM SULF RIDER 2 GM/50 ML PREMIX IV PRN (12:09)
[2022-08-29] MEDS ORDERED: GLUCAGON 1 MG VIAL IM PRN (12:09)
[2022-08-29] MEDS ORDERED: MAGNESIUM SULF RIDER 4 GM/100 ML PREMIX IV PRN (12:09)
[2022-08-29] MEDS: INSULIN LISPRO 100 UNIT/ML SUBCUT SCH ×2 (16:02→22:28)
[2022-08-29] MEDS: TOPIRAMATE 25 MG TABLET PO SCH (21:56)
[2022-08-29] MEDS: DULoxetine 30 MG CAPSULE PO SCH (21:56)
[2022-08-30] MEDS: HYDROmorphone 1 MG/1 ML SYRINGE IV PRN ×5 (01:04→21:53)
[2022-08-30 03:37] LABS: Basophils # 0.1 10*3/uL (0.0-0.2); Basophils % 0.3 % (0.0-0.8); Eosinophils # 0.5 10*3/uL (0.0-0.87); Eosinophils % 2.7 % (0.00-10.9); Hematocrit 30.1 VOL% (35.7-47.0); Hemoglobin 9.4 GM/DL (12.0-16.0); Immature Granulocytes % 0.8 %; Immature Granulocytes Absolute 0.14 #; Lymphocytes # 2.4 10*3/uL (1.4-4.0); Lymphocytes % 13.1 % (21.3-54.2); Mean Corpuscular HGB Conc 31.2 GM/DL (32-36); Mean Corpuscular Volume 77.8 FL (87-102); Mean Platelet Volume 11.4 FL (9.6-12.0); Monocytes # 1.5 10*3/uL (0.11-0.8); Monocytes % 8.4 % (1.7-12.7); Neutrophils % 74.7 % (38.7-73.9); Platelet Count 341 T/CUMM (130-400); Red Blood Count 3.87 MC/CUMM (3.8-5.5); Red Cell Distribution Width 17.6 % (9.3-17.3); White Blood Count 18.1 T/CUMM (4-12)
[2022-08-30 03:56] LABS: Eosinophils 4 % (0-10); Lymphocytes 14 % (20-55); Platelet Estimate Adequate; Total Cells Counted 100
[2022-08-30 03:57] LABS: Hypochromia Slight; Microcytosis Slight
[2022-08-30 03:59] LABS: Calcium 7.8 MG/DL (8.5-10.1); Osmolality,Calculated 280.3 MOS/KG (273-304); Potassium 3.4 MMOL/L (3.5-5.1)
[2022-08-30 04:14] LABS: Albumin 2.2 G/DL (3.4-5.0); Bilirubin,Direct 0.32 MG/DL (0.0-0.20); Bilirubin,Indirect 0.3 MG/DL (0.0-1.0); Bilirubin,Total 0.6 MG/DL (0.20-1.00); Total Protein 5.8 G/DL (6.4-8.2)
[2022-08-30] MEDS: PIPERACILLIN/TAZOBACTAM 3,375 MG in SODIUM CHLORIDE 0.9% 100 ML IV SCH ×3 (05:36→21:54)
[2022-08-30] MEDS: ONDANSETRON 4 MG/2 ML VIAL IV PRN ×2 (05:37→18:34)
[2022-08-30] MEDS: DEXTROSE 5% LACTATED RINGERS 1,000 ML IV SCH ×3 (07:25→16:41)
[2022-08-30] MEDS: DULoxetine 30 MG CAPSULE PO SCH ×2 (09:26→21:53)
[2022-08-30] MEDS: PANTOPRAZOLE 40 MG TABLET PO SCH (09:26)
[2022-08-30] MEDS: POTASSIUM CHLORIDE 20 MEQ TABLET PO PRN ×5 (09:26→21:53)
[2022-08-30] MEDS: TOPIRAMATE 25 MG TABLET PO SCH ×2 (09:26→21:53)
[2022-08-30] MEDS: amLODIPine 5 MG TABLET PO SCH (09:27)
[2022-08-30] MEDS: INSULIN LISPRO 100 UNIT/ML SUBCUT SCH ×4 (10:13→21:55)
[2022-08-30] MEDS: hydrALAZINE 20 MG/1 ML VIAL IV PRN (11:46)
[2022-08-30] MEDS: HEPARIN DRIP 25,000 UNITS/500 ML PREMIX IV SCH (12:29)
[2022-08-31] MEDS: hydrALAZINE 20 MG/1 ML VIAL IV PRN ×2 (00:19→10:37)
[2022-08-31] MEDS: ONDANSETRON 4 MG/2 ML VIAL IV PRN ×4 (00:51→18:20)
[2022-08-31] MEDS: HYDROmorphone 1 MG/1 ML SYRINGE IV PRN ×4 (00:51→18:19)
[2022-08-31] MEDS: HEPARIN DRIP 25,000 UNITS/500 ML PREMIX IV SCH ×3 (02:03→17:59)
[2022-08-31] MEDS: DEXTROSE 5% LACTATED RINGERS 1,000 ML IV SCH ×2 (02:03→12:32)
[2022-08-31] MEDS: PIPERACILLIN/TAZOBACTAM 3,375 MG in SODIUM CHLORIDE 0.9% 100 ML IV SCH ×3 (05:00→21:38)
[2022-08-31 06:00] LABS: Basophils # 0.1 10*3/uL (0.0-0.2); Basophils % 0.4 % (0.0-0.8); Eosinophils # 0.3 10*3/uL (0.0-0.87); Hematocrit 31.5 VOL% (35.7-47.0); Immature Granulocytes % 1.7 %; Immature Granulocytes Absolute 0.28 #; Lymphocytes # 2.7 10*3/uL (1.4-4.0); Lymphocytes % 16.2 % (21.3-54.2); Mean Corpuscular HGB Conc 31.7 GM/DL (32-36); Mean Corpuscular Volume 77.8 FL (87-102); Mean Platelet Volume 10.9 FL (9.6-12.0); Monocytes # 1.6 10*3/uL (0.11-0.8); Monocytes % 9.9 % (1.7-12.7); Neutrophils % 69.8 % (38.7-73.9); Platelet Count 376 T/CUMM (130-400); Red Blood Count 4.05 MC/CUMM (3.8-5.5); Red Cell Distribution Width 17.8 % (9.3-17.3); White Blood Count 16.3 T/CUMM (4-12)
[2022-08-31 06:16] LABS: Albumin 2.4 G/DL (3.4-5.0); Bilirubin,Total 0.6 MG/DL (0.20-1.00); Calcium 8.5 MG/DL (8.5-10.1); Osmolality,Calculated 274.7 MOS/KG (273-304); Potassium 3.9 MMOL/L (3.5-5.1); Total Protein 6.7 G/DL (6.4-8.2)
[2022-08-31] MEDS: INSULIN LISPRO 100 UNIT/ML SUBCUT SCH ×4 (07:43→22:28)
[2022-08-31] MEDS: DULoxetine 30 MG CAPSULE PO SCH ×2 (08:57→21:35)
[2022-08-31] MEDS: TOPIRAMATE 25 MG TABLET PO SCH ×2 (08:57→21:36)
[2022-08-31] MEDS: POTASSIUM CHLORIDE 20 MEQ TABLET PO PRN (08:57)
[2022-08-31] MEDS: amLODIPine 5 MG TABLET PO SCH (08:57)
[2022-08-31] MEDS: PANTOPRAZOLE 40 MG TABLET PO SCH (08:57)
[2022-08-31] MEDS ORDERED: PROMETHAZINE INJ 12.5 MG in SODIUM CHLORIDE 0.9% 50 ML IV PRN (11:24)
[2022-09-01] MEDS: HEPARIN DRIP 25,000 UNITS/500 ML PREMIX IV SCH (02:06)
[2022-09-01] MEDS: DEXTROSE 5% LACTATED RINGERS 1,000 ML IV SCH ×3 (03:21→18:33)
[2022-09-01] MEDS: hydrALAZINE 20 MG/1 ML VIAL IV PRN (03:22)
[2022-09-01] MEDS: ONDANSETRON 4 MG/2 ML VIAL IV PRN ×2 (03:25→09:56)
[2022-09-01] MEDS: PIPERACILLIN/TAZOBACTAM 3,375 MG in SODIUM CHLORIDE 0.9% 100 ML IV SCH ×3 (04:38→20:51)
[2022-09-01] MEDS: INSULIN LISPRO 100 UNIT/ML SUBCUT SCH ×4 (08:08→22:25)
[2022-09-01] MEDS: DULoxetine 30 MG CAPSULE PO SCH ×2 (09:55→20:49)
[2022-09-01] MEDS: PANTOPRAZOLE 40 MG TABLET PO SCH (09:56)
[2022-09-01] MEDS: TOPIRAMATE 25 MG TABLET PO SCH ×2 (09:56→20:49)
[2022-09-01] MEDS: amLODIPine 5 MG TABLET PO SCH (09:56)
[2022-09-01] MEDS ORDERED: RIVAROXABAN 20 MG TABLET PO SCH (17:00)
[2022-09-02] MEDS: PIPERACILLIN/TAZOBACTAM 3,375 MG in SODIUM CHLORIDE 0.9% 100 ML IV SCH (05:09)
[2022-09-02] MEDS: INSULIN LISPRO 100 UNIT/ML SUBCUT SCH (07:18)
[2022-09-02 09:04] VITALS: BP 183/93
[2022-09-02] MEDS: DULoxetine 30 MG CAPSULE PO SCH (09:33)
[2022-09-02] MEDS: amLODIPine 5 MG TABLET PO SCH (09:33)
[2022-09-02] MEDS: PANTOPRAZOLE 40 MG TABLET PO SCH (09:33)
[2022-09-02] MEDS: TOPIRAMATE 25 MG TABLET PO SCH (09:33)
== END 2022-09-02 12:07 | disposition home or self-care (01) | DRG 674 ==
LOC: N.ED 13:27 → N.EDINP 18:13 → N.ICU 19:04 → N.3E 08-29 11:12
PROVIDERS: ADMIT Student in an Organized Health Care Education/Training Program; ATTEND Student in an Organized Health Care Education/Training Program